=== PATIENT | male | born 1945 | race Caucasian/White ===

== ENCOUNTER 2017-06-17 16:12 | Observation (INO) | payer OTHER ==
[~2017-06-17] VITALS: Ht 167.6 cm; Wt 95.4 kg
[2017-06-17 16:52] LABS: EOSINOPHIL (%) 0.7 % (0-5); EOSINOPHIL COUNT 0.1 K/uL (0-0.3); IMMATURE GRANULOCYTE (%) 0.4 % (0.0-0.7); INSTRUMENT ABS NEUTROPHIL CT 5.4 K/uL; MCH 27.1 PG (29.0-34.0); MCHC 32.2 G/DL (30.0-36.0); MCV 84.2 FL (86-99); MEAN PLAT.VOLUME 10.2 uM^3 (9.0-12.4); MONOCYTE (%) 9.4 % (3-12); MONOCYTE COUNT 0.7 K/uL (0-0.8); NEUTROPHIL (%) 75.9 % (45-76); NEUTROPHIL COUNT 5.4 K/uL (1.8-6.4); PLATELET COUNT 273 K/uL (156-360); RBC DIS.WIDTH-CV 14.6 % (11.8-14.6); RBC DIS.WIDTH-SD 44.7 % (39-53); RED BLOOD COUNT 4.87 M/uL (4.00-5.50); WHITE BLOOD COUNT 7.1 K/uL (4.1-10.2)
[2017-06-17 17:10] LABS: CHLORIDE 104 mEq/L (99-109); SODIUM 140 mEq/L (136-147)
[2017-06-17 17:13] LABS: GLUCOSE 115 mg/dL (70-99)
[2017-06-17 17:14] LABS: ANION GAP 11 MEQ/L (2-14); TOTAL BILIRUBIN 0.9 mg/dL (0.0-1.0)
[2017-06-17 17:16] LABS: ALKALINE PHOSPHATASE 72 IU/L (3-129); GFR ESTIMATE (CALCULATED) > 59 mL/min/ (58.99-99999)
[2017-06-17 17:17] LABS: UREA NITROGEN (BUN) 13 mg/dL (9-23)
[2017-06-17 17:22] LABS: TROP-I INTERPRETATION NEGATIVE; TROPONIN-I 0.06 ng/mL (0.0-0.30)
[2017-06-17] MEDS ORDERED: TYLENOL EXTRA500 MG PO (18:07)
[2017-06-17] MEDS ORDERED: ANACIN 400-321 EACH PO (18:08)
[2017-06-17 21:03] LABS: MAGNESIUM 1.8 mg/dl (1.3-2.7)
[2017-06-17 22:27] VITALS: BP 138/100
[2017-06-18 04:58] VITALS: BP 162/100
[2017-06-18 06:08] LABS: ANION GAP 10 MEQ/L (2-14); CHLORIDE 102 MEQ/L (99-109); GFR ESTIMATE (CALCULATED) > 59 mL/min/ (58.99-99999); GLUCOSE 99 mg/dL (70-99); HDL CHOLESTEROL 30 MG/DL (Desirable>=40); LDL CHOLESTEROL 98 mg/dL (Desirable<100); NON-HDL CHOLESTEROL 122 mg/dL (Desirable<160); POTASSIUM 3.8 MEQ/L (3.7-5.4); SAMPLE HEMOLYSIS CHECK 0; SAMPLE ICTERIC CHECK 0; SAMPLE LIPEMIA CHECK 0; SODIUM 141 MEQ/L (136-147); TOTAL CHOLESTEROL 152 mg/dL (Desirable<200); TRIGLYCERIDES 119 MG/DL (Normal: <150); UREA NITROGEN (BUN) 17 mg/dL (9-23)
[2017-06-18 08:45] VITALS: BP 136/103
[2017-06-18 11:51] VITALS: BP 150/90; BP 187/124
[2017-06-18 15:01] LABS: ANION GAP 9 MEQ/L (2-14); CHLORIDE 101 MEQ/L (99-109); MAGNESIUM 1.9 mg/dl (1.3-2.7); POTASSIUM 3.6 MEQ/L (3.7-5.4); SAMPLE HEMOLYSIS CHECK 0; SAMPLE ICTERIC CHECK 0; SAMPLE LIPEMIA CHECK 0; SODIUM 136 MEQ/L (136-147)
[2017-06-18 15:07] LABS: GFR ESTIMATE (CALCULATED) > 59 mL/min/ (58.99-99999); GLUCOSE 113 mg/dL (70-99); UREA NITROGEN (BUN) 19 mg/dL (9-23)
[2017-06-18 15:52] VITALS: BP 178/102
[2017-06-18] MEDS ORDERED: XARELTO20 MG PO (15:52)
[2017-06-18] MEDS ORDERED: CARDIZEM CD,CA180 MG PO (15:52)
[2017-06-18] MEDS ORDERED: K-DUR20 MEQ PO (15:53)
[2017-06-18] MEDS ORDERED: HYDROCHLOROTHIA25 MG PO (15:53)
== END 2017-06-18 18:35 | disposition home or self-care (01) ==
LOC: EME 16:12 → 4EAST 19:21 → EDOF 19:21 → ENRESERV 19:23 → 4EAST 22:11
PROVIDERS: Emergency Medicine; Internal Medicine; Physician Assistant Medical
DX: I48.91 Unspecified atrial fibrillation (principal); I10 Essential (primary) hypertension; R60.0 Localized edema; F41.9 Anxiety disorder, unspecified; Z82.5 Family history of asthma and other chronic lower respiratory diseases; Z80.0 Family history of malignant neoplasm of digestive organs
CPT/HCPCS: 71010; 80048; 80048 91; 80053; 80061; 83735; 83880; 84484; 85025; 87502; 93005; 93306; 94799; 99281; 99285; G0378; J1650; J1940; J7050

== ENCOUNTER 2017-08-02 09:50 | Day surgery (SDC) | payer OTHER ==
[~2017-08-02] VITALS: Ht 167.6 cm; Wt 85.7 kg
[~2017-08-02 09:50] MED LIST: ANACIN 400-321 EACH PO; CARDIZEM CD,CA180 MG PO; HYDROCHLOROTHIA25 MG PO; K-DUR20 MEQ PO; LEXAPRO5 MG PO; LISINOPRIL-HCT1 EACH PO; SOTALOL80 MG PO; TYLENOL EXTRA500 MG PO; XARELTO20 MG PO
== END 2017-08-02 12:15 | disposition home or self-care (01) ==
LOC: CATH 09:50
PROC: 5A2204Z Restoration of Cardiac Rhythm, Single (ICD-10-PCS; principal; 2017-08-02)
DX: I48.1 Persistent atrial fibrillation (principal); I10 Essential (primary) hypertension; Z79.01 Long term (current) use of anticoagulants
CPT/HCPCS: 93005